=== PATIENT | male | born 2000 | race Caucasian/White ===

== ENCOUNTER 2019-02-17 17:02 | Emergency (ER) | payer OTHER ==
[~2019-02-17] VITALS: Ht 175.3 cm; Wt 72.1 kg
--- NOTE | 2019-02-17 17:58 | REP ---
Four views left ankle: 02/17/2019. Indication: Left ankle pain. Comparison: None. Findings: There is no acute fracture, subluxation or dislocation. No significant soft tissue swelling is present. There is no joint effusion. No lytic or blastic lesions of the visualized bones are present. Impression: No acute osseous injury of the left ankle. Electronically Signed by Rhys Melgoza DO 02/17/2019 05:50 P
[2019-02-17] MEDS ORDERED: IBUPROFEN 600 MG TAB PO ONE (18:45)
--- NOTE | 2019-02-17 19:22 | REP ---
Four views left foot: 02/17/2019. Indication: Left foot pain. Comparison: None. Findings: There is no acute fracture, subluxation or dislocation. No lytic or blastic osseous lesions are detected. Impression: No acute fracture or additional acute osseous injury of the left foot. Electronically Signed by Rhys Melgoza DO 02/17/2019 07:14 P
[2019-02-17 19:51] VITALS: BP 126/70
== END 2019-02-17 20:12 | disposition home or self-care (01) ==
LOC: M ED 17:02
DX: M79.672 Pain in left foot (principal); F17.290 Nicotine dependence, other tobacco product, uncomplicated